=== PATIENT | female | born 1970 | race Caucasian/White ===

== ENCOUNTER → 2024-08-06 09:00 | Outpatient (BNVA) | payer BC, SELFPAY | PROVIDERS: Family Provider Family Medicine; PCP Family Medicine; Visit Provider Family Medicine | DX: Z00.00 Encounter for general adult medical examination without abnormal findings (principal) | CPT/HCPCS: 80053; 80061; 84443; 85025 ==

== ENCOUNTER 2024-11-03 16:05 | Outpatient (CLI) | payer BC, SELFPAY ==
--- NOTE | 2024-11-03 16:15 | US_ITS ---
WS: [id number] THYROID ULTRASOUND HISTORY: hypothyroidism, goiter COMPARISON: None available. Right lobe: 1.2 cm x 1.4 cm x 5.0 cm (w x ap x l). Volume: 3.8 cm3. Normal size and echotexture. No significant are dominant nodules are present. Left lobe: 1.3 cm x 1.4 cm x 4.4 cm (w x ap x l). Volume: 3.9 cm3. Normal size and echotexture. No significant or dominant nodules are present. Isthmus: 0.4 cm. US/US thyroid [id number] IMPRESSION: Normal thyroid ultrasound.
== END 2024-11-03 16:06 | disposition home or self-care (01) ==
LOC: RAD 16:07
PROVIDERS: Family Provider Family Medicine; PCP Family Medicine; Visit Provider Family Medicine
DX: E04.9 Nontoxic goiter, unspecified (principal); E03.9 Hypothyroidism, unspecified
CPT/HCPCS: 76536

== ENCOUNTER 2024-11-18 15:47 | Outpatient (CLI) | payer BC, SELFPAY | END 2024-11-18 15:48 | disposition home or self-care (01) | LOC: SLEEP 15:48 | PROVIDERS: Family Provider Family Medicine; PCP Family Medicine; Visit Provider Family Medicine | DX: G47.33 Obstructive sleep apnea (adult) (pediatric) (principal); G47.36 Sleep related hypoventilation in conditions classified elsewhere; R06.83 Snoring; R40.0 Somnolence; E66.01 Morbid (severe) obesity due to excess calories; Z68.42 Body mass index [BMI] 45.0-49.9, adult; E04.9 Nontoxic goiter, unspecified; E03.9 Hypothyroidism, unspecified | CPT/HCPCS: G0399 ==